=== PATIENT | female | born 1945 | race Caucasian/White ===

== ENCOUNTER → 2019-12-30 | Outpatient (CLI) | payer OTHER, BC ==
[~2019-12-30] MED LIST: CAL-MAG-ZINC T1 EACH PO; CARDIZEM CD240 MG PO; CARISOPRODOL 3350 MG PO; CILOSTAZOL 100100 MG PO; COENZYME Q10100 M2 PO; COQ-10100 MG PO; DILTIAZEM 24HR120 M2 PO; DILTIAZEM 24HR240 M1 PO; LIPITOR20 MG PO; LISINOPRIL10 MG PO; METOPROLOL SUCC25 M1 PO; MULTAQ 400 MG400 MG PO; MULTI VITAMIN1 EACH PO; OMEPRAZOLE40 MG PO; PLETAL100 MG PO; PRADAXA150 MG PO; SOTALOL120 MG PO; SULINDAC 150 M150 MG PO; TOPROL XL50 MG PO
== END ==
LOC: SJCVC 10:47
PROVIDERS: ATTEND Internal Medicine
DX: R94.31 Abnormal electrocardiogram [ECG] [EKG] (principal); I48.21 Permanent atrial fibrillation; I10 Essential (primary) hypertension; E78.00 Pure hypercholesterolemia, unspecified; K21.9 Gastro-esophageal reflux disease without esophagitis; Z90.49 Acquired absence of other specified parts of digestive tract; Z79.899 Other long term (current) drug therapy

== ENCOUNTER → 2020-06-22 | Outpatient (CLI) | payer OTHER, BC | LOC: SJCVC 09:59 | PROVIDERS: ATTEND Internal Medicine | DX: R94.31 Abnormal electrocardiogram [ECG] [EKG] (principal); I48.21 Permanent atrial fibrillation; I10 Essential (primary) hypertension; E78.5 Hyperlipidemia, unspecified; K21.9 Gastro-esophageal reflux disease without esophagitis; E78.00 Pure hypercholesterolemia, unspecified; Z79.01 Long term (current) use of anticoagulants; Z79.899 Other long term (current) drug therapy ==

== ENCOUNTER → 2020-12-30 | Outpatient (CLI) | payer OTHER, BC | LOC: SJCVCIMAG 09:05 | PROVIDERS: ATTEND Internal Medicine | DX: I08.1 Rheumatic disorders of both mitral and tricuspid valves (principal); I11.9 Hypertensive heart disease without heart failure; R94.31 Abnormal electrocardiogram [ECG] [EKG]; I48.21 Permanent atrial fibrillation; E78.5 Hyperlipidemia, unspecified; K21.9 Gastro-esophageal reflux disease without esophagitis; E78.00 Pure hypercholesterolemia, unspecified; I73.9 Peripheral vascular disease, unspecified; Z90.49 Acquired absence of other specified parts of digestive tract; Z88.8 Allergy status to other drugs, medicaments and biological substances; Z79.01 Long term (current) use of anticoagulants; Z79.899 Other long term (current) drug therapy; Z82.49 Family history of ischemic heart disease and other diseases of the circulatory system ==

== ENCOUNTER → 2021-07-27 | Outpatient (CLI) | payer OTHER, BC | LOC: SJCVC 10:36 | PROVIDERS: ATTEND Internal Medicine | DX: R94.31 Abnormal electrocardiogram [ECG] [EKG] (principal); I48.21 Permanent atrial fibrillation; I10 Essential (primary) hypertension; E78.5 Hyperlipidemia, unspecified; K21.9 Gastro-esophageal reflux disease without esophagitis; E78.00 Pure hypercholesterolemia, unspecified; I73.9 Peripheral vascular disease, unspecified; Z79.01 Long term (current) use of anticoagulants; Z79.899 Other long term (current) drug therapy; Z88.8 Allergy status to other drugs, medicaments and biological substances ==